=== PATIENT | female | born 1960 | race Caucasian/White ===

== ENCOUNTER 2020-09-07 17:12 | Emergency (ER) | payer OTHER ==
[~2020-09-07 17:12] MED LIST: BENTYL10 MG PO; BUSPIRONE HCL10 MG PO; CARAFATE1 GM PO; DOXYCYCLINE MO100 MG PO; IBUPROFEN800 MG PO; LISINOPRIL-HCT1 EAC2 PO; NAPROXEN500 MG PO; NORCO 5-325 TA1 EACH PO; PERCOCET 5-3251 EACH PO; PHENERGAN25 M1 PO; PRAZOSIN HCL2 MG PO; PROTONIX 40MG T40 MG PO; ZOFRAN4 M1 PO
[2020-09-07 19:14] LABS: BASOPHIL 1.1 % (0-2); EOSINOPHIL 7.9 % (0-5); HCT 45.4 % (37.0-47.0); MCH 31.3 pg (25.0-31.0); MCV 94.8 fL (78.0-100.0); MONOCYTE 6.9 % (0-12); MPV 10.8 fL (6.0-9.5); NEUTROPHIL 52.5 % (41-80); NRBC 0; PLT 357 K/uL (150-400); RBC 4.79 M/uL (4.20-5.40); RDW 12.9 % (11.5-14.0); WBC 15.1 K/uL (4.0-10.5)
[2020-09-07 19:32] LABS: ALBUMIN 4.2 g/dL (3.4-5.0); BILIRUBIN - TOTAL 0.5 mg/dL (0.2-1.0); CREATININE 0.81 mg/dL (0.51-0.95); GLOBULIN (CALCULATION) 3.3 g/dL; POTASSIUM 4.3 mmol/L (3.5-5.1); TOTAL PROTEIN 7.5 g/dL (6.4-8.2)
[2020-09-07 19:39] LABS: LACTIC ACID 1.3 mmol/L (0.4-1.9)
[2020-09-07 19:56] LABS: BILIRUBIN NEGATIVE (NEGATIVE); BLOOD NEGATIVE Ery/uL (NEGATIVE); CLARITY CLEAR (CLEAR); COLOR YELLOW (YELLOW); GLUCOSE (U) NORMAL (NORMAL); LEUKOCYTES NEGATIVE Leu/uL (NEGATIVE); NITRITE NEGATIVE (NEGATIVE); PROTEIN NEGATIVE (NEGATIVE); SPECIFIC GRAVITY >=1.030 (1.001-1.030); UROBILINOGEN 0.2 mg/dL (0.2-1.0); pH 5.5 (5.0-9.0)
[2020-09-07 19:58] LABS: AMPHETAMINES NEGATIVE (NEGATIVE); BARBITURATES NEGATIVE (NEGATIVE); ECSTASY (MDMA) NEGATIVE (NEGATIVE); MARIJUANA (THC) NEGATIVE (NEGATIVE); METHADONE NEGATIVE (NEGATIVE); OPIATES NEGATIVE (NEGATIVE); OXYCODONE NEGATIVE (NEGATIVE)
[2020-09-07] MEDS ORDERED: ZOFRAN4 M1 PO (21:19)
[2020-09-07] MEDS ORDERED: BACLOFEN 10MG T10 MG PO (21:19)
== END 2020-09-07 22:00 | disposition home or self-care (01) ==
LOC: FER 17:12
PROVIDERS: Nurse Practitioner Family
DX: R51.9 Headache, unspecified (principal); R50.9 Fever, unspecified; R06.02 Shortness of breath; R11.2 Nausea with vomiting, unspecified; R19.7 Diarrhea, unspecified; R10.9 Unspecified abdominal pain; M79.10 Myalgia, unspecified site; E11.9 Type 2 diabetes mellitus without complications; I10 Essential (primary) hypertension; E78.5 Hyperlipidemia, unspecified; F41.9 Anxiety disorder, unspecified; F32.9 Major depressive disorder, single episode, unspecified; R00.0 Tachycardia, unspecified; Z90.710 Acquired absence of both cervix and uterus; Z90.49 Acquired absence of other specified parts of digestive tract; Z98.890 Other specified postprocedural states; Z88.0 Allergy status to penicillin; Z79.84 Long term (current) use of oral hypoglycemic drugs; Z79.899 Other long term (current) drug therapy; Z20.822 Contact with and (suspected) exposure to COVID-19
CPT/HCPCS: 36415; 71046; 80053; 80305; 81003; 83605; 85025; 87040; 93005; J1885; J7030; U0002

== ENCOUNTER 2021-12-25 21:16 | Emergency (ER) | payer OTHER ==
[~2021-12-25 21:16] MED LIST changes: +BACLOFEN 10MG T10 MG PO
[2021-12-25 22:15] LABS: BASOPHIL 0.8 % (0-2); EOSINOPHIL 3.9 % (0-5); HCT 45.5 % (37.0-47.0); HGB 14.8 g/dl (12.5-16.0); LYMPHOCYTE 39.9 % (15-48); MCH 29.6 pg (25.0-31.0); MCHC 32.5 g/dL (32.0-36.0); MONOCYTE 7.6 % (0-12); MPV 10.6 fL (6.0-9.5); NEUTROPHIL 47.6 % (41-80); NRBC 0; PLT 366 K/uL (150-400); RDW 13.1 % (11.5-14.0); WBC 10.1 K/uL (4.0-10.5)
[2021-12-25 22:49] LABS: ALBUMIN 3.4 g/dL (3.4-5.0); BILIRUBIN - TOTAL 0.3 mg/dL (0.2-1.0); BUN/CREAT RATIO (CALC) 11.8 RATIO; CREATININE 1.02 mg/dL (0.51-0.95); GLOBULIN (CALCULATION) 3.5 g/dL; POTASSIUM 3.3 mmol/L (3.5-5.1); TOTAL PROTEIN 6.9 g/dL (6.4-8.2)
[2021-12-26] MEDS ORDERED: LISINOPRIL-HCT1 EAC1 PO (04:03)
== END 2021-12-26 05:16 | disposition home or self-care (01) ==
LOC: FER 21:16
PROVIDERS: Nurse Practitioner Family
DX: M79.602 Pain in left arm (principal); M79.601 Pain in right arm; R07.9 Chest pain, unspecified; I10 Essential (primary) hypertension; E11.9 Type 2 diabetes mellitus without complications; Z88.0 Allergy status to penicillin; Z79.84 Long term (current) use of oral hypoglycemic drugs
CPT/HCPCS: 36415; 71045; 71275; 80053; 84484; 85025; 93005; J3490; Q9967